=== PATIENT | female | born 1975 | race Caucasian/White ===

== ENCOUNTER 2018-06-14 19:45 | Emergency (ER) | payer MEDICAID ==
--- NOTE | 2018-06-14 21:57 | ED Physician Chart ---
ED Chief Complaint/HPI - Patient Information Date Seen:: 06/14/18 Time Seen:: 21:00 Chief Complaint:: finger lacrration lt middle finger History of Present Illness:: 43 yr old female who put her digit in the trash and sustained laceration lt 3rd digit Allergies:: Allergies Allergy/AdvReac Type Severity Reaction Status Date / Time No Known Allergies Allergy Verified 06/14/18 21:10 Vitals:: Vital Signs - 8 hr 06/14/18 20:35 Temp 98.1 F HR 79 RR 18 BP 125/61 O2 Sat % 98 ED Review of Systems - Review of Systems General/Constitutional: No fever Skin: Skin lesions (lt 3rd digit jaggered laceration) Head: No headache Eyes: No loss of vision ENT: No earache Neck: No neck pain Cardio Vascular: No chest pain Pulmonary: No SOB GI: No nausea ED Past Medical History - Past Medical History Past Medical History: No significant medical hx Family Medical History - Family Member Mother History Unknown: Yes ED Physical Exam - Physical Examination General/Constitutional: Well-developed, well-nourished (laceration distal lt 3rd digir) Head: Atraumatic Eyes: Lids, conjuctiva normal Neck: Full ROM w/o pain Respiratory: Nl effort/Exclusion ED Septic Shock - . Is Septic Shock (SBP<90, OR Lactate>4 mmol\L) present?: No - <6hrs of presentation: Vital Signs: Vital Signs - 8 hr 06/14/18 20:35 Temp 98.1 F HR 79 RR 18 BP 125/61 O2 Sat % 98 ED Reassessment (Disposition) - Reassessment Reassessment Condition:: Improved - Aftercare/Follow up Instructions Aftercare/Follow-Up Instructions:: Counseled pt regarding lab results/diagnosis & need follow up - Patient Disposition Discharge/Transfer:: Home Admitted to:: Med/Surg
[2018-06-14 23:10] VITALS: BP 125/61
== END 2018-06-14 22:03 | disposition home or self-care (01) ==
LOC: ER 19:45
DX: S61.213A Laceration without foreign body of left middle finger without damage to nail, initial encounter (principal); W26.8XXA Contact with other sharp object(s), not elsewhere classified, initial encounter; Y93.89 Activity, other specified; Y92.89 Other specified places as the place of occurrence of the external cause; Y99.8 Other external cause status
CPT/HCPCS: 99283; 96372; 90715; J0696; J2001; Z7502